=== PATIENT | female | born 1990 | race Caucasian/White ===

== ENCOUNTER 2021-02-05 18:42 | Emergency (ER) | payer BC, SELFPAY ==
--- OUTSIDE RECORDS SUMMARY | 2021-02-05 18:44 | XMS REPORT | Continuity of Care Document ---
:1990 Author Organization [facility] t Address [address] [place] [address] Dr. Pérez [address] [place] [id number] Care Team Providers Name Role Phone Unavailable Unavailable Unavailable Problems This patient has no known problems. Allergies, Adverse Reactions, Alerts This patient has no known allergies or adverse reactions. Medications This patient has no known medications. Procedures This patient has no known procedures. Results This patient has no known results.
[2021-02-05] MEDS ORDERED: ACETAMINOPHEN 500 MG TAB ONE (19:54)
--- NOTE | 2021-02-05 22:11 | RAD REPORT ---
EXAM DESCRIPTION: RAD - Chest Pa And Lat (2 Views) - 02/05/2021 9:19 pm CLINICAL HISTORY: COUGH COMPARISON: No comparisons FINDINGS: No evidence of edema or pneumonia. The heart size is within normal limits.No acute osseous abnormality. No significant pleural effusions or pneumothorax. IMPRESSION: No acute cardiopulmonary disease.
--- NOTE | 2021-02-05 23:04 | ER ---
Nurse's Notes [facility] Name: Michelle Vaughan Age: 30 yrs Sex: Female : 1990 Arrival Date: 02/05/2021 Time: 18:44 Bed Waiting Private MD: Diagnosis: SARS-associated coronavirus as the cause of diseases classified elsewhere;Other specified diseases of upper respiratory tract Presentation: 02/05 18:48 Chief complaint: Patient states: SOB, chest pain, body aches x 3days. Coronavirus kg screen: Client denies travel out of the [place] in the last 14 days. At this time, unable to obtain information related to travel outside the [place] At this time, the client does not indicate any symptoms associated with coronavirus-19. Ebola Screen: Patient negative for fever greater than or equal to 101.5 degrees Fahrenheit, and additional compatible Ebola Virus Disease symptoms Patient denies exposure to infectious person. Patient denies travel to an Ebola-affected area in the 21 days before illness onset. No symptoms or risks identified at this time. Initial Sepsis Screen: Does the patient meet any 2 criteria? No. Patient's initial sepsis screen is negative. Does the patient have a suspected source of infection? No. Patient's initial sepsis screen is negative. Risk Assessment: Do you want to hurt yourself or someone else? Patient reports no desire to harm self or others. Onset of symptoms was February 03, 2021. 18:48 Method Of Arrival: Wheelchair kg 18:48 Acuity: PHILIP 3 kg Triage Assessment: 18:55 General: Appears in no apparent distress. Behavior is cooperative, appropriate for age, kg crying, quiet. Respiratory: Reports shortness of breath at rest cough that is Onset: The symptoms/episode began/occurred the patient has mild shortness of breath. 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 Last tetanus immunization:. - Social history:: Smoking status: Patient denies any tobacco usage or history of. Screenin:54 Abuse screen: Denies threats or abuse. Denies injuries from another. Nutritional kg screening: No deficits noted. Tuberculosis screening: No symptoms or risk factors identified. Fall Risk None identified. Assessment: 18:54 Pain: Complains of pain in chest. Cardiovascular: Reports chest pain, shortness of kg breath. Respiratory: Airway. Respiratory: Respiratory effort is even, unlabored, Respiratory pattern is tachypnea Breath sounds are clear bilaterally. 23:21 Cardiovascular: Rhythm is regular. kg Vital Signs: 18:48 BP 142 / 97; Pulse 97; Resp 20; Temp 100.1(O); Pulse Ox 100% on R/A; Weight 113.4 kg kg (R); Height 5 ft. 6 in. (167.64 cm) (R); Pain 7/10; 23:20 BP 119 / 84; Pulse 96; Resp 20; Temp 98.5(O); Pulse Ox 100% on R/A; kg 18:48 Body Mass Index 40.35 (113.40 kg, 167.64 cm) kg ED Course: 18:44 Patient arrived in ED. ds1 18:50 Triage completed. kg 20:32 Jose Rae PA is PHCP. cp 20:32 Faraz Han MD is Attending Physician. cp 21:19 XRAY Chest Pa And Lat (2 Views) In Process Unspecified. EDOK 23:20 Rachel Moreira, RN is Primary Nurse. kg 23:20 Arm band placed on right wrist. kg 23:21 Patient has correct armband on for positive identification. kg 23:21 No provider procedures requiring assistance completed. Patient did not have IV access kg during this emergency room visit. Administered Medications: 19:32 Drug: Tylenol 1000 mg Route: PO; kg 23:21 Follow up: Response: No adverse reaction; Temperature is decreased kg Outcome: 23:04 Discharge ordered by . cp 23:21 Discharged to home ambulatory. kg 23:21 Condition: improved 23:21 Discharge instructions given to patient, Instructed on discharge instructions, follow up and referral plans. Demonstrated understanding of instructions, follow-up care, medications, Prescriptions given X 4. 23:22 Patient left the ED. kg Signatures: Dispatcher [employer] EDOK JulianAfshan booker ds1 Jose Rae PA PA cp Rachel Moreira, RN RN kg
--- NOTE | 2021-02-05 23:04 | EDPHYS ---
Physician Documentation [facility] Name: Michelle Vaughan Age: 30 yrs Sex: Female : 1990 Arrival Date: 02/05/2021 Time: 18:44 Bed Waiting Private MD: ED Physician Faraz Han HPI: 02/05 23:00 This 30 yrs old Female presents to ER via Wheelchair with complaints of cp Breathing Difficulty. 23:00 The patient has shortness of breath at rest. Onset: The symptoms/episode began/occurred cp 2 day(s) ago. Duration: The symptoms are continuous, and are unchanged since they started. Associated signs and symptoms: Pertinent positives: chest pain, non-productive cough, body aches, Pertinent negatives: diaphoresis, fever. Severity of symptoms: in the emergency department the symptoms are unchanged despite home interventions. 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 Last tetanus immunization:. - Social history:: Smoking status: Patient denies any tobacco usage or history of. ROS: 23:01 Eyes: Negative for injury, pain, redness, and discharge. cp 23:01 Constitutional: Positive for body aches, chills, Negative for fever, poor PO intake. 23:01 ENT: Positive for sore throat, Negative for drainage from ear(s), ear pain, difficulty swallowing, difficulty handling secretions. 23:01 Neck: Negative for pain with movement, pain at rest, stiffness. 23:01 Cardiovascular: Positive for chest pain, with cough, Negative for edema, palpitations. 23:01 Respiratory: Positive for cough, with no reported sputum, shortness of breath, at rest. Negative for wheezing. 23:01 Abdomen/GI: Positive for abdominal pain, Negative for vomiting, diarrhea, constipation. 23:01 Back: Negative for radiated pain. 23:01 Neuro: Negative for altered mental status, dizziness, syncope, weakness. 23:01 All other systems are negative. Exam: 23:02 Head/Face: Normocephalic, atraumatic. cp 23:02 Constitutional: The patient appears in no acute distress, alert, awake, non-diaphoretic, non-toxic, well developed, well nourished, obese. 23:02 Eyes: Periorbital structures: appear normal, Conjunctiva: normal, no exudate, no cp injection, Sclera: no appreciated abnormality, Lids and lashes: appear normal, bilaterally. 23:02 ENT: External ear(s): are unremarkable, Nose: is normal, Mouth: Lips: moist, Oral cp mucosa: pink and intact, moist, Posterior pharynx: Airway: no evidence of obstruction, patent, Tonsils: no enlargement, no exudate, erythema, that is mild. 23:02 Neck: ROM/movement: is normal, is supple, without pain, no range of motions limitations, no meningismus. 23:02 Chest/axilla: Inspection: normal, Palpation: is normal, no crepitus, no tenderness. 23:02 Cardiovascular: Rate: normal, Rhythm: regular, Edema: is not appreciated, JVD: is not appreciated. 23:02 Respiratory: the patient does not display signs of respiratory distress, Respirations: normal, no use of accessory muscles, no retractions, labored breathing, is not present, Breath sounds: are clear throughout, no decreased breath sounds, no stridor, no wheezing. 23:02 Abdomen/GI: Exam negative for discomfort, distension, guarding, Inspection: abdomen appears normal. 23:02 Back: pain, that is very mild, ROM is normal. 23:02 Skin: no rash present. 23:02 Neuro: Orientation: to person, place \\T\\ time. Mentation: is normal, Motor: moves all fours, Gait: is steady, at a normal pace, without difficulty. Vital Signs: 18:48 BP 142 / 97; Pulse 97; Resp 20; Temp 100.1(O); Pulse Ox 100% on R/A; Weight 113.4 kg kg (R); Height 5 ft. 6 in. (167.64 cm) (R); Pain 7/10; 23:20 BP 119 / 84; Pulse 96; Resp 20; Temp 98.5(O); Pulse Ox 100% on R/A; kg 18:48 Body Mass Index 40.35 (113.40 kg, 167.64 cm) kg MDM: 23:04 Patient medically screened. cp 23:04 Data reviewed: vital signs, nurses notes, radiologic studies, plain films. cp 23:04 Test interpretation: by ED physician or midlevel provider: plain radiologic studies. cp Counseling: I had a detailed discussion with the patient and/or guardian regarding: the historical points, exam findings, and any diagnostic results supporting the discharge/admit diagnosis, radiology results, to return to the emergency department if symptoms worsen or persist or if there are any questions or concerns that arise at home. ED course: VSS. Patient appears non-toxic and no signs of respiratory distress. Will discharge to home for continued monitoring. 02/05 18:54 Order name: COVID-19 : Document "Date of Symptom Onset" if Symptomatic. kg 02/05 18:54 Order name: Flu kg 02/05 20:33 Order name: XRAY Chest Pa And Lat (2 Views) cp 02/05 20:33 Order name: SARS-COV-2 RT PCR EDMS Administered Medications: 19:32 Drug: Tylenol 1000 mg Route: PO; kg 23:21 Follow up: Response: No adverse reaction; Temperature is decreased kg Disposition: 23:24 Co-signature as Attending Physician, Faraz Han MD. pkl Disposition Summary: 02/05/21 23:04 Discharge Ordered Location: Home cp Problem: new cp Symptoms: are unchanged cp Condition: Stable cp Diagnosis - SARS-associated coronavirus as the cause of diseases classified elsewhere cp - Other specified diseases of upper respiratory tract cp Followup: cp - With: Private Physician - When: 2 - 3 days - Reason: Worsening of condition Discharge Instructions: - Discharge Summary Sheet cp - COVID-19 cp - Things to Know about the COVID-19 Pandemic - [facility] cp - 10 Things You Can Do to Manage Your COVID-19 Symptoms at Home - [facility] cp - COVID-19: Quarantine vs. Isolation - [facility] cp - Prevent the Spread of COVID-19 if You Are Sick - [facility] cp Forms: - Medication Reconciliation Form cp - Thank You Letter cp - Antibiotic Education cp - Work release form cp - Prescription Opioid Use cp Prescriptions: - albuterol sulfate 90 mcg/actuation Inhalation HFA aerosol inhaler - inhale 2 puff by INHALATION route every 4-6 hours; 1 Inhaler; Refills: 0, cp Product Selection Permitted - Tessalon Perles 100 mg Oral Capsule - take 2 capsule by ORAL route every 8 hours As needed; 30 capsule; Refills: 0, cp Product Selection Permitted - Zithromax Z-Vahe 250 mg Oral Tablet - take 1 tablet by ORAL route as directed for 5 days Day 1 - take two (2) tablets cp one time. Day 2, 3, 4 , 5 take one (1) tablet once daily.; 6 tablet; Refills: 0, Product Selection Permitted - Prednisone 20 mg Oral Tablet - take 2 tablets by ORAL route once daily for 5 days then take 1 tablet daily for cp 5 days; 15 tablet; Refills: 0, Product Selection Permitted Signatures: Dispatcher [employer] EDMS Faraz Han MD MD pkl oJse Rae, JORDAN PA cp Rachel Moreira RN RN kg Corrections: (The following items were deleted from the chart) 19:41 18:54 CORONAVIRUS ordered. EDNH EDNH
[2021-02-05 23:31] VITALS: O2SAT 100
[2021-02-05 23:36] VITALS: BP 119/84; TEMP 98.5
== END 2021-02-05 23:22 | disposition home or self-care (01) ==
LOC: ER 18:42
DX: U07.1 COVID-19 (principal); J98.8 Other specified respiratory disorders
CPT/HCPCS: 71046; 87804; 99283; U0003

== ENCOUNTER 2021-02-12 17:35 | Inpatient (IN) | payer SELFPAY ==
--- OUTSIDE RECORDS SUMMARY | 2021-02-12 17:38 | XMS REPORT | Continuity of Care Document ---
:1990 Author Organization [facility] t Address [address] [place] [address] Dr. Pérez [address] [place] [id number] Care Team Providers Name Role Phone Unavailable Unavailable Unavailable Problems This patient has no known problems. Allergies, Adverse Reactions, Alerts This patient has no known allergies or adverse reactions. Medications This patient has no known medications. Procedures This patient has no known procedures. Results This patient has no known results.
[2021-02-12 19:08] LABS: Absolute Lymphocytes (CBC) 0.7 K/uL (0.7-4.9); Basophils % 0.3 % (0-1.3); Hematocrit 43.3 % (36.0-45.0); Lymphocytes % 17.8 % (15.3-44.8); MPV 8.5 fL (7.6-11.3); Protime INR 1.03; RBC Red Blood Cell Count 5.16 M/uL (3.86-4.86)
[2021-02-12] MEDS ORDERED: METHYLPREDNISOLONE 125 MG INJ ONE (19:19)
[2021-02-12] MEDS ORDERED: FAMOTIDINE 20 MG/2 ML VIAL IV ONE (19:19)
[2021-02-12] MEDS ORDERED: ONDANSETRON 4 MG/2 ML VIAL ONE (19:19)
[2021-02-12] MEDS ORDERED: METOCLOPRAMIDE 10 MG/2mL INJ ONE (19:19)
[2021-02-12] MEDS ORDERED: NA CHLORIDE 0.9% 1,000 ML ONE (19:19)
[2021-02-12 19:24] LABS: ALT/SGPT 23 U/L (12-78); AST/SGOT 29 U/L (15-37); Albumin 3.5 g/dL (3.4-5.0); Alkaline Phosphatase 68 U/L (45-117); BUN Blood Urea Nitrogen 6 mg/dL (7-18); Bicarbonate 30 mmol/L (21-32); Bilirubin Direct 0.2 mg/dL (0-0.2); Bilirubin Total 0.4 mg/dL (0.2-1.0); Ferritin 610.4 ng/mL (8-388); Glucose Level 105 mg/dL (74-106); Magnesium 2.1 mg/dL (1.8-2.4); Potassium 3.7 mmol/L (3.5-5.1); Protein, Total 7.4 g/dL (6.4-8.2); Sodium Level 135 mmol/L (136-145); Troponin (Emerg Dept Use Only) < 0.02 ng/mL (0.0-0.045)
[2021-02-12 19:34] LABS: NT PRO-BNP < 5 pg/mL (<125)
--- NOTE | 2021-02-12 20:09 | ER ---
Nurse's Notes [facility] Name: Michelle Vaughan Age: 30 yrs Sex: Female : 1990 Arrival Date: 02/12/2021 Time: 17:36 Bed 5 Private MD: Diagnosis: Other viral pneumonia;Hypoxemia;SARS-associated coronavirus as the cause of diseases classified elsewhere Presentation: 02/12 18:17 Chief complaint: Patient states: Vomiting, shortness of breath, GRIMALDO, vomiting/ diarrhea ss since being diagnosed with COVID. Coronavirus screen: Client presents with at least one sign or symptom that may indicate coronavirus-19. Standard/surgical mask placed on the client. Provider contacted for isolation considerations. Ebola Screen: Patient denies exposure to infectious person. Patient denies travel to an Ebola-affected area in the 21 days before illness onset. Initial Sepsis Screen: Does the patient meet any 2 criteria? Yes Does the patient have a suspected source of infection? No. Patient's initial sepsis screen is negative. Risk Assessment: Do you want to hurt yourself or someone else? Patient reports no desire to harm self or others. Onset of symptoms was January 2021. 18:17 Acuity: PHILIP 2 ss 18:17 Method Of Arrival: Wheelchair ss Historical: - Allergies: 18:18 No Known Allergies; ss - Home Meds: 18:18 Zofran Oral [Active]; ss - PMHx: 18:18 None; ss - PSHx: 18:18 section; Ligation of fallopian tube; Tonsillectomy; ss - Immunization history:: Client reports having NOT received the Covid vaccine. - Social history:: Smoking status: Patient denies any tobacco usage or history of. Screenin:07 Abuse screen: Denies threats or abuse. Denies injuries from another. Nutritional iw screening: No deficits noted. Tuberculosis screening: No symptoms or risk factors identified. Fall Risk IV access (20 points). Assessment: 19:07 Reassessment: Patient appears in no apparent distress at this time. Patient and/or iw family updated on plan of care and expected duration. Pain level reassessed. Patient is alert, oriented x 3, equal unlabored respirations, skin warm/dry/pink. 19:07 General: Appears in no apparent distress. Behavior is calm, cooperative. Pain: iw Complains of pain in head. Neuro: Level of Consciousness is awake, alert, obeys commands, Oriented to person, place, time, situation, Moves all extremities. Full function. Cardiovascular: Patient's skin is warm and dry. Respiratory: Reports pain with respiration Respiratory effort is even, unlabored, Respiratory pattern is regular. GI: Abdomen is non-distended, Reports nausea, vomiting. Derm: Skin is intact, is healthy with good turgor. Musculoskeletal: Range of motion: intact in all extremities. Vital Signs: 18:17 BP 106 / 33; Pulse 111; Resp 36; Temp 97.8(TE); Pulse Ox 93% on R/A; Weight 113.4 kg; ss Height 5 ft. 7 in. (170.18 cm); Pain 10/10; 19:06 BP 123 / 78; Pulse 98; Resp 22 S; Pulse Ox 96% on 2 lpm NC; iw 18:17 Body Mass Index 39.16 (113.40 kg, 170.18 cm) ss ED Course: 17:36 Patient arrived in ED. ds1 18:18 Triage completed. ss 18:18 Arm band placed on right wrist. ss 18:24 Jose Rae PA is PHCP. cp 18:24 Talha oGnzáles MD is Attending Physician. cp 18:40 Inserted saline lock: 20 gauge in left antecubital area, using aseptic technique. Blood iw collected. 19:14 XRAY Chest (1 view) In Process Unspecified. EDMS 20:06 Hali Doyle RN is Primary Nurse. iw 20:07 Brian Ceja PA is Hospitalizing Provider. cp 20:44 CT Chest For PE Angio In Process Unspecified. EDMS 08 19:30 Primary Nurse role handed off by Hali Doyle, JUAN mw2 Administered Medications: 02/12 19:08 Drug: NS 0.9% 1000 ml Route: IV; Rate: 1000 ml/hr; Site: left antecubital; iw 19:09 Drug: SOLU-Medrol (methylPrednisoLONE) 125 mg Route: IVP; Site: left antecubital; iw 19:09 Drug: Zofran (Ondansetron) 4 mg Route: IVP; Site: left antecubital; iw 19:09 Drug: Pepcid (famotidine) 20 mg Route: IVP; Site: left antecubital; iw 19:09 Drug: Reglan (metoCLOPramide) 10 mg Route: IVP; Site: left antecubital; iw 20:11 Drug: Tessalon Perle (benzonatate) 200 mg Route: PO; ea 20:11 Drug: Tylenol 1000 mg Route: PO; ea Outcome: 20:08 Decision to Hospitalize by Provider. fior 02/14 21:59 Admitted to Tele room 413, with oxygen, with chart, Report called to JUAN Fine lp1 Condition: stable Instructed on the need for admit. 22:39 Patient left the ED. lp1 Signatures: Dispatcher [employer] EDMI Afshan Julian ds1 Hali Doyle RN RN iw Shilpa Kc RN RN ss Pena, Laura, RN RN lp1 Jose Rae PA PA cp Antunez, Elena, RN RN ea [place], MyKena mw2
--- NOTE | 2021-02-12 20:09 | EDPHYS ---
Physician Documentation [facility] Name: Michelle Vaughan Age: 30 yrs Sex: Female : 1990 Arrival Date: 02/12/2021 Time: 17:36 Bed 5 Private MD: ED Physician Talha Gonzáles HPI: 02/12 18:45 This 30 yrs old Female presents to ER via Wheelchair with complaints of Covid cp + SOB, Vomiting. Historical: - Allergies: 18:18 No Known Allergies; ss - Home Meds: 18:18 Zofran Oral [Active]; ss - PMHx: 18:18 None; ss - PSHx: 18:18 section; Ligation of fallopian tube; Tonsillectomy; ss - Immunization history:: Client reports having NOT received the Covid vaccine. - Social history:: Smoking status: Patient denies any tobacco usage or history of. ROS: 18:50 Constitutional: Positive for body aches, poor PO intake, Negative for chills, fever. cp 18:50 Eyes: Negative for injury, pain, redness, and discharge. cp 18:50 ENT: Negative for ear pain, sore throat, difficulty swallowing, difficulty handling secretions. 18:50 Cardiovascular: Positive for chest pain, with cough, Negative for edema, palpitations. 18:50 Respiratory: Positive for cough, "sounds productive", shortness of breath, Negative for wheezing. 18:50 Abdomen/GI: Positive for nausea, vomiting, and diarrhea, anorexia, Negative for hematemesis, black/tarry stool, rectal bleeding. 18:50 Back: Negative for injury or acute deformity. 18:50 : Negative for urinary symptoms. 18:50 Neuro: Negative for altered mental status, headache, syncope. 18:50 All other systems are negative. Exam: 18:50 Head/Face: Normocephalic, atraumatic. cp 18:50 Constitutional: The patient appears alert, awake, non-diaphoretic, non-toxic, well developed, well nourished, obese, in obvious distress, mildly distressed. 18:50 Eyes: Periorbital structures: appear normal, Pupils: equal, round, and reactive to light and accomodation, Extraocular movements: intact throughout, Conjunctiva: normal, no exudate, no injection, Sclera: no appreciated abnormality, Lids and lashes: appear normal, bilaterally. 18:50 ENT: External ear(s): are unremarkable, Nose: is normal, Mouth: Lips: moist, Oral mucosa: moist, Posterior pharynx: Airway: no evidence of obstruction, patent. 18:50 Neck: ROM/movement: is normal, is supple, no meningismus, no nuchal rigidity. 18:50 Chest/axilla: Inspection: normal. 18:50 Cardiovascular: Rate: tachycardic, Rhythm: regular, Edema: is not appreciated, JVD: is not appreciated. 18:50 Respiratory: mild respiratory distress is noted, Respirations: labored breathing, that is mild, shallow respirations, that is moderate, Breath sounds: bronchial sounds, that are moderate, are heard diffusely, decreased breath sounds, that are mild, diffuse, stridor, is not appreciated, wheezing: is not appreciated. 18:50 Abdomen/GI: Inspection: abdomen appears normal, Bowel sounds: active, all quadrants, Palpation: soft, in all quadrants, mild abdominal tenderness, in all quadrants. 18:50 Back: CVA tenderness, is absent. 18:50 Skin: cellulitis, is not appreciated, no rash present. 18:50 Neuro: Orientation: to person, place \\T\\ time. Mentation: is normal, Cerebellar function: is grossly normal, Motor: moves all fours, strength is normal, Sensation: no obvious gross deficits. Vital Signs: 18:17 BP 106 / 33; Pulse 111; Resp 36; Temp 97.8(TE); Pulse Ox 93% on R/A; Weight 113.4 kg; ss Height 5 ft. 7 in. (170.18 cm); Pain 10/10; 19:06 BP 123 / 78; Pulse 98; Resp 22 S; Pulse Ox 96% on 2 lpm NC; iw 18:17 Body Mass Index 39.16 (113.40 kg, 170.18 cm) ss MDM: 18:30 Patient medically screened. cp 19:00 Differential diagnosis: Myocardial Infarction pneumonia, Pneumothorax pulmonary edema, cp Pulmonary Embolism Sepsis respiratory failure. 20:05 Data reviewed: vital signs, nurses notes, lab test result(s), EKG, radiologic studies, cp plain films. 20:05 Antibiotic administration: Not indicated, the patient has a suspected viral illness. cp Test interpretation: by ED physician or midlevel provider: plain radiologic studies. Counseling: I had a detailed discussion with the patient and/or guardian regarding: the historical points, exam findings, and any diagnostic results supporting the discharge/admit diagnosis, lab results, radiology results, the need for further work-up and treatment in the hospital. Response to treatment: the patient's symptoms have mildly improved after treatment. 02/12 18:40 Order name: Basic Metabolic Panel; Complete Time: 19:35 cp 02/12 19:36 Interpretation: Normal except: NA 135; BUN 6; GFR 65. cp 02/12 18:40 Order name: CBC with Diff; Complete Time: 19:35 cp 02/12 19:36 Interpretation: Normal except: RBC 5.16; WBC 3.90; MATT% 73.9. cp 02/12 18:40 Order name: LFT's; Complete Time: 19:35 cp 02/12 19:36 Interpretation: Normal except: A/G 0.9; GLOB 3.9. cp 02/12 18:40 Order name: Magnesium; Complete Time: 19:35 cp 02/12 18:40 Order name: NT PRO-BNP; Complete Time: 19:35 cp 02/12 18:40 Order name: PT-INR; Complete Time: 19:35 cp 02/12 18:40 Order name: Troponin (emerg Dept Use Only); Complete Time: 19:35 cp 02/12 18:40 Order name: CRP; Complete Time: 19:35 cp 02/12 19:36 Interpretation: Abnormal: C-REACTIVE PROT 64.70. cp 02/12 18:40 Order name: Ferritin; Complete Time: 19:35 cp 02/12 18:40 Order name: D-Dimer; Complete Time: 19:35 cp 02/13 05:08 Order name: Comprehensive Metabolic Panel EDMS 02/13 05:08 Order name: Phosphorus EDMS 02/13 05:08 Order name: C-Reactive Protein EDMS 02/13 05:08 Order name: Magnesium EDMS 02/12 18:40 Order name: XRAY Chest (1 view); Complete Time: 21:24 cp 02/12 21:25 Interpretation: Report reviewed. cp 02/12 18:40 Order name: EKG; Complete Time: 18:44 cp 02/12 18:40 Order name: Cardiac monitoring; Complete Time: 09:13 cp 02/12 19:59 Order name: CT Chest For PE Angio; Complete Time: 21:24 cp 02/12 21:15 Order name: CONS Physician Consult EDMS 02/13 05:08 Order name: Ferritin EDMS 02/13 05:11 Order name: CBC with Automated Diff EDMS 02/13 06:10 Order name: Procalcitonin EDMS 02/14 03:50 Order name: Comprehensive Metabolic Panel EDMS 02/12 18:40 Order name: IV Saline Lock; Complete Time: 19:09 cp 02/12 18:40 Order name: Labs collected and sent; Complete Time: 19:09 cp 02/12 18:40 Order name: O2 Per Protocol; Complete Time: 19:09 cp 02/12 18:40 Order name: O2 Sat Monitoring; Complete Time: 19:09 cp 02/12 19:37 Order name: PO challenge; Complete Time: 20:07 cp Administered Medications: 19:08 Drug: NS 0.9% 1000 ml Route: IV; Rate: 1000 ml/hr; Site: left antecubital; iw 19:09 Drug: SOLU-Medrol (methylPrednisoLONE) 125 mg Route: IVP; Site: left antecubital; iw 19:09 Drug: Zofran (Ondansetron) 4 mg Route: IVP; Site: left antecubital; iw 19:09 Drug: Pepcid (famotidine) 20 mg Route: IVP; Site: left antecubital; iw 19:09 Drug: Reglan (metoCLOPramide) 10 mg Route: IVP; Site: left antecubital; iw 20:11 Drug: Tessalon Perle (benzonatate) 200 mg Route: PO; ea 20:11 Drug: Tylenol 1000 mg Route: PO; ea Disposition Summary: 02/12/21 20:08 Hospitalization Ordered Hospitalization Status: Inpatient Admission cp Provider: Brian Ceja cp Condition: Fair cp Problem: new cp Symptoms: have improved cp Bed/Room Type: Standard cp Location: Telemetry/MedSurg (Inpatient)(02/14/21 21:17) mw Room Assignment: 413(02/14/21 21:17) mw Diagnosis - Other viral pneumonia cp - Hypoxemia cp - SARS-associated coronavirus as the cause of diseases classified elsewhere cp Forms: - Medication Reconciliation Form cp - SBAR form cp Signatures: Dispatcher [employer] EDMS Jo, Anjana, RN RN mw Vivek, Hali, RN RN iw Smirch, Shilpa, RN RN ss Page, Jose, PA PA Kimberley Santo RN RN ea Corrections: (The following items were deleted from the chart) 21:04 20:08 Telemetry/MedSurg (Inpatient) cp mw 21:04 20:08 cp mw 02/14 18:31 08 18:45 This 30 yrs old Female presents to ER via Wheelchair with cp complaints of Covid + SOB, Vomiting. cp 02/14 21:17 02/12 21:04 [facility] ER HOLD mw mw 02/14 21:17 02/12 21:04 ERHOLD- mw mw
[2021-02-12] MEDS ORDERED: ACETAMINOPHEN 500 MG TAB ONE (20:32)
[2021-02-12] MEDS ORDERED: BENZONATATE 100 MG CAP PO ONE ×2 (20:32→20:33)
--- NOTE | 2021-02-12 20:39 | RAD REPORT ---
EXAM DESCRIPTION: RAD - Chest Single View - 02/12/2021 7:14 pm CLINICAL HISTORY: COUGH, COVID positive COMPARISON: February 05 TECHNIQUE: AP portable chest image was obtained 02/12/2021 7:14 pm . FINDINGS: Lung volumes are low. Bilateral interstitial and alveolar opacities are present more prono unced on the left. Pattern is consistent with bilateral COVID-19 pneumonia. No failure or volume over load. Heart and vasculature are normal. No measurable pleural effusion and no pneumothorax. No acute bony abnormality seen. No acute aortic findings suspected. IMPRESSION: Mild to moderate bilateral COVID-19 pneumonia.
--- NOTE | 2021-02-12 21:12 | RAD REPORT ---
EXAM DESCRIPTION: CT - Chest For Pe Angio - 02/12/2021 8:45 pm CLINICAL HISTORY: SOB COMPARISON: Chest Single View dated 02/12/2021 TECHNIQUE: Dynamically enhanced 3 mm thick images of the chest were obtained during administration o f approximately 150mL Isovue 370 IV contrast. Coronal and oblique MIP reconstruction images were gene rated and reviewed. Exam utilizes a protocol to evaluate the pulmonary arterial tree. All CT scans are performed using dose optimization technique as appropriate and may include automated exposure control or mA/KV adjustment according to patient size. FINDINGS: No pulmonary emboli are identified. The aorta as imaged shows no acute or suspicious finding. No pericardial thickening or effusion. Bilateral multi lobe peripheral ground-glass opacification and areas of consolidation seen. This is p redominately a peripheral distribution pattern classically described with COVID-19 pneumonia. Minimal atelectasis in each posterior gutter. No mass or cavitation. No endobronchial lesions. No pleural ef fusion or pleural thickening. No mediastinal or hilar suspicious masses. No chest wall masses or abnormal axillary lymphadenopathy. Bilateral breast implants are in place.6 IMPRESSION: No pulmonary emboli identified. Mild to moderate severity bilateral COVID-19 pneumonia pattern.
--- NOTE | 2021-02-12 22:13 | P.HP ---
Certification for Inpatient Patient admitted to: Inpatient With expected LOS: >2 Midnights Patient will require the following post-hospital care: None Practitioner: I am a practitioner with admitting privileges, knowledge of patient current condition, hospital course, and medical plan of care. Services: Services provided to patient in accordance with Admission requirements found in Title 42 Section 412.3 of the Code of Federal Regulations Patient History Date of Service: 02/12/21 Reason for admission: covid pneumonia History of Present Illness: Ms. Vaughan is a 30 yo F who presents with fever and SOB. She tested positive for COVID on 02/05 and symptoms began on 02/03. She came in today because she coudln't catch her breath. She reports night sweats, chills, cough, pleuritic pain, nausea, vomiting, diarrhea. Ddimer 792. Ferritin 610. CRP 64.7. CTPE and CXR show moderate pneumonia, no evidence of pulmonary embolism. Allergies No Known Drug Allergies Allergy (Unverified 11/25/14 09:39) Unknown - Past Medical/Surgical History Has patient received pneumonia vaccine in the past: No Diabetic: No Past Medical History: Patient denies medical history -: C section -: tonsillectomy -: ear tubes - Family History Father -: Diabetes - Social History Smoking Status: Never smoker Alcohol use: No CD- Drugs: No Caffeine use: Yes Place of Residence: Home Review of Systems General: Fever, Chills, Sweats, Malaise Respiratory: Cough, Shortness of Breath, SOB with Excertion, Pleuritic Pain Gastrointestinal: Nausea, Vomiting, Diarrhea Physical Examination - Physical Exam General: Alert, In no apparent distress HEENT: Atraumatic, PERRLA, Mucous membr. moist/pink, EOMI, Sclerae nonicteric Neck: Supple, 2+ carotid pulse no bruit, No LAD, Without JVD or thyroid abno rmality Respiratory: Diminished, Rhonchi/gurgles Cardiovascular: Regular rate/rhythm, Normal S1 S2 Gastrointestinal: Normal bowel sounds, No tenderness Musculoskeletal: No tenderness Integumentary: No rashes Neurological: Normal speech, Normal strength at 5/5 x4 extr, Normal tone, Normal affect Lymphatics: No axilla or inguinal lymphadenopathy - Studies Laboratory Data (last 24 hrs) 02/12/21 18:50: PT 11.9, INR 1.03 02/12/21 18:50: WBC 3.90 L, Hgb 14.5, Hct 43.3, Plt Count 169 02/12/21 18:50: Sodium 135 L, Potassium 3.7, BUN 6 L, Creatinine 1.00, Glucose 105, Magnesium 2.1, Total Bilirubin 0.4, AST 29, ALT 23, Alkaline Phosphatase 68 Assessment and Plan - Problems (Diagnosis) (1) Pneumonia due to COVID-19 virus Current Visit: Yes Status: Acute - Plan pulm consulted, RT consulted daily room air sats, sats for home O2 continue IV steroids, covid supplements, and ivermectin pain management and antitussives as needed daily CRP, ferritin, procal DVT ppx Discharge Plan: Home Plan to discharge in: 48 Hours - Advance Directives Does patient have a Living Will: No Does patient have a Durable POA for Healthcare: No - Code Status/Comfort Care Code Status Assessed: Yes (full code ) Critical Care: No Time Spent Managing Pts Care (In Minutes): 70
[2021-02-13] MEDS ORDERED: MELATONIN 5 MG TABLET PO PRN (02:47)
[2021-02-13] MEDS: GUAIFENESIN/DM 5 ML UCUP PO PRN ×2 (03:00→13:27)
[2021-02-13] MEDS: MORPHINE 2 MG/ML SYR IV PRN ×3 (03:13→17:15)
[2021-02-13] MEDS ORDERED: MELATONIN 5 MG TABLET PO ONE ×2 (03:44→21:45)
[2021-02-13] MEDS ORDERED: GUAIFENESIN/DM 5 ML UCUP ONE ×3 (03:45→21:46)
[2021-02-13] MEDS ORDERED: MORPHINE 2 MG/ML SYR ONE ×3 (04:32→17:34)
[2021-02-13 04:46] LABS: Absolute Lymphocytes (CBC) 0.5 K/uL (0.7-4.9); Basophils % 0.1 % (0-1.3); Hematocrit 39.5 % (36.0-45.0); Lymphocytes % 25.4 % (15.3-44.8); MPV 8.4 fL (7.6-11.3)
[2021-02-13 05:07] LABS: Albumin 3.1 g/dL (3.4-5.0); Bilirubin Total 0.3 mg/dL (0.2-1.0); C-Reactive Protein 65.6 mg/L (<3.00); Ferritin 560.9 ng/mL (8-388); Magnesium 2.3 mg/dL (1.8-2.4); Phosphorus 3.4 mg/dL (2.5-4.9); Protein, Total 6.8 g/dL (6.4-8.2)
[2021-02-13 07:51] VITALS: BMI 39.1
--- NOTE | 2021-02-13 08:55 | P.CNS ---
Date of Consult: 02/13/21 Reason for Consult: COVID penumonia Chief Complaint: covid pneumonia History of Present Illness: Age 30 AW REsp failure fromCOVID Allergies No Known Drug Allergies Allergy (Unverified 11/25/14 09:39) Unknown - Past Medical/Surgical History Diabetic: No -: C section -: tonsillectomy -: ear tubes - Family History Father Medical History: Diabetes - Social History Alcohol use: No CD- Drugs: No Caffeine use: Yes Place of Residence: Home Review of Systems General: Weakness Respiratory: Shortness of Breath Physical Examination Temp Pulse Resp BP Pulse Ox 98.7 F 73 18 115/79 93 02/13/21 04:00 02/13/21 04:00 02/13/21 04:00 02/13/21 04:00 02/13/21 04:00 General: Alert, Oriented x3, Cooperative Laboratory Data (last 24 hrs) 02/12/21 18:50: PT 11.9, INR 1.03 02/12/21 18:50: WBC 3.90 L, Hgb 14.5, Hct 43.3, Plt Count 169 02/12/21 18:50: Sodium 135 L, Potassium 3.7, BUN 6 L, Creatinine 1.00, Glucose 105, Magnesium 2.1, Total Bilirubin 0.4, AST 29, ALT 23, Alkaline Phosphatase 68 - Problems (1) Pneumonia due to COVID-19 virus Current Visit: Yes Status: Acute Plan: Age 30 Aw resp failure from COVID/ Ct ext pneumonia/onNC O2/ labs and Ct rev
[2021-02-13] MEDS: ZINC SULFATE 220 MG CAP PO SCH (09:00)
[2021-02-13] MEDS: THIAMINE HCL 100 MG TABLET PO SCH (09:00)
[2021-02-13] MEDS: ASCORBIC ACID 500 MG TABLET PO SCH ×4 (09:00→21:00)
[2021-02-13] MEDS: IVERMECTIN 3 MG TABLET PO SCH (09:00)
[2021-02-13] MEDS: ASPIRIN EC 81 MG TAB PO SCH (09:00)
[2021-02-13] MEDS: FAMOTIDINE 20 MG TAB PO SCH ×2 (09:00→21:00)
[2021-02-13] MEDS: METHYLPREDNISOLONE 125 MG INJ IV SCH ×2 (09:00→21:00)
[2021-02-13] MEDS: VITAMIN D 1000 UNIT TAB PO SCH (09:00)
[2021-02-13] MEDS ORDERED: ASCORBIC ACID 500 MG TABLET ONE ×4 (09:32→21:45)
[2021-02-13] MEDS ORDERED: THIAMINE HCL 100 MG TABLET ONE (09:32)
[2021-02-13] MEDS ORDERED: ASPIRIN EC 81 MG TAB PO ONE (09:32)
[2021-02-13] MEDS ORDERED: ZINC SULFATE 220 MG CAP ONE (09:32)
[2021-02-13] MEDS ORDERED: VITAMIN D 1000 UNIT TAB ONE (09:33)
[2021-02-13] MEDS ORDERED: FAMOTIDINE 20 MG TAB ONE ×2 (09:33→21:46)
[2021-02-13] MEDS ORDERED: METHYLPREDNISOLONE 40 MG INJ ONE ×2 (09:33→21:46)
--- NOTE | 2021-02-13 15:26 | P.PN ---
Subjective Date of Service: 02/13/21 Chief Complaint: covid pneumonia Patient maintained on 3-4 L of oxygen by nasal cannula. She reports shortness of breath was slightest exertion and coughing spells with movement. Physical Examination - Vital Signs Temperature: 98.2 F Blood Pressure: 138/72 Pulse: 87 Respirations: 28 Pulse Ox (%): 90 - Physical Exam General: In no apparent distress, Obese HEENT: Other (Oxygen by nasal canula) Neck: JVD not distended Respiratory: Other (Nonlabored breathing) Cardiovascular: Regular rate/rhythm, Normal S1 S2 Gastrointestinal: Soft and benign, Non-distended Musculoskeletal: No swelling Integumentary: No rashes Neurological: Normal strength at 5/5 x4 extr - Studies Laboratory Data (last 24 hrs) 02/12/21 18:50: PT 11.9, INR 1.03 02/12/21 18:50: WBC 3.90 L, Hgb 14.5, Hct 43.3, Plt Count 169 02/12/21 18:50: Sodium 135 L, Potassium 3.7, BUN 6 L, Creatinine 1.00, Glucose 105, Magnesium 2.1, Total Bilirubin 0.4, AST 29, ALT 23, Alkaline Phosphatase 68 Assessment And Plan - Current Problems (Diagnosis) (1) Acute respiratory failure with hypoxia Current Visit: Yes Status: Acute (2) Pneumonia due to COVID-19 virus Current Visit: Yes Status: Acute (3) Leukopenia Current Visit: Yes Status: Acute - Plan IV steroid Vitamin supplementation Zinc supplementation Pulmonary input appreciated Titrate oxygen
[2021-02-13] MEDS ORDERED: RIVAROXABAN 10 MG TABLET PO SCH (17:00)
[2021-02-13] MEDS: ONDANSETRON 4 MG/2 ML VIAL IV PRN (17:16)
[2021-02-13] MEDS ORDERED: RIVAROXABAN 20 MG TABLET PO ONE (17:34)
[2021-02-13] MEDS ORDERED: ONDANSETRON 4 MG/2 ML VIAL ONE (17:34)
[2021-02-13] MEDS ORDERED: LORAZEPAM 0.5 MG TABLET PO ONE (23:20)
[2021-02-13] MEDS ORDERED: LORAZEPAM 0.5 MG TABLET ONE (23:49)
[2021-02-14] MEDS: ONDANSETRON 4 MG/2 ML VIAL IV PRN (03:00)
[2021-02-14] MEDS: GUAIFENESIN/DM 5 ML UCUP PO PRN ×3 (03:00→22:30)
[2021-02-14] MEDS: MORPHINE 2 MG/ML SYR IV PRN ×3 (03:02→22:30)
[2021-02-14] MEDS ORDERED: MORPHINE 2 MG/ML SYR ONE ×3 (03:42→22:48)
[2021-02-14] MEDS ORDERED: ONDANSETRON 4 MG/2 ML VIAL ONE (03:42)
[2021-02-14] MEDS ORDERED: GUAIFENESIN/DM 5 ML UCUP ONE ×3 (03:44→22:47)
[2021-02-14 03:49] LABS: ALT/SGPT 21 U/L (12-78); AST/SGOT 21 U/L (15-37); Albumin 2.9 g/dL (3.4-5.0); Alkaline Phosphatase 55 U/L (45-117); BUN Blood Urea Nitrogen 11 mg/dL (7-18); Bicarbonate 31 mmol/L (21-32); Bilirubin Total 0.2 mg/dL (0.2-1.0); Glucose Level 169 mg/dL (74-106); Potassium 4.4 mmol/L (3.5-5.1); Protein, Total 6.4 g/dL (6.4-8.2); Sodium Level 139 mmol/L (136-145)
[2021-02-14] MEDS: VITAMIN D 1000 UNIT TAB PO SCH (09:00)
[2021-02-14] MEDS: ASPIRIN EC 81 MG TAB PO SCH (09:00)
[2021-02-14] MEDS: ZINC SULFATE 220 MG CAP PO SCH (09:00)
[2021-02-14] MEDS: FAMOTIDINE 20 MG TAB PO SCH ×2 (09:00→20:48)
[2021-02-14] MEDS: METHYLPREDNISOLONE 125 MG INJ IV SCH ×2 (09:00→20:48)
[2021-02-14] MEDS: THIAMINE HCL 100 MG TABLET PO SCH (09:00)
[2021-02-14] MEDS: ASCORBIC ACID 500 MG TABLET PO SCH ×4 (09:00→20:48)
[2021-02-14] MEDS ORDERED: THIAMINE HCL 100 MG TABLET ONE (09:46)
[2021-02-14] MEDS ORDERED: ASPIRIN EC 81 MG TAB PO ONE (09:46)
[2021-02-14] MEDS ORDERED: ASCORBIC ACID 500 MG TABLET ONE ×4 (09:46→20:08)
[2021-02-14] MEDS ORDERED: VITAMIN D 1000 UNIT TAB ONE (09:47)
[2021-02-14] MEDS ORDERED: FAMOTIDINE 20 MG TAB ONE ×2 (09:47→20:09)
[2021-02-14] MEDS ORDERED: ZINC SULFATE 220 MG CAP ONE (09:47)
[2021-02-14] MEDS ORDERED: METHYLPREDNISOLONE 40 MG INJ ONE ×2 (09:47→20:08)
[2021-02-14] MEDS ORDERED: RIVAROXABAN 20 MG TABLET PO ONE (13:11)
[2021-02-14] MEDS: RIVAROXABAN 20 MG TABLET PO SCH (17:00)
--- NOTE | 2021-02-14 18:56 | P.PN ---
Subjective Date of Service: 02/14/21 Chief Complaint: covid pneumonia Patient is getting worse. She is now requiring up to 12 L of oxygen by nasal canula. She report dyspnea with the slightest movement. Physical Examination - Vital Signs Temperature: 97.5 F Blood Pressure: 114/60 Pulse: 73 Respirations: 19 Pulse Ox (%): 94 - Physical Exam General: Alert, In no apparent distress Neck: JVD not distended Respiratory: Other (Nonlabored breathing) Cardiovascular: Regular rate/rhythm, Normal S1 S2 Gastrointestinal: Soft and benign, Non-distended Musculoskeletal: No swelling Integumentary: No rashes, No erythema Neurological: Normal strength at 5/5 x4 extr Assessment And Plan - Current Problems (Diagnosis) (1) Acute respiratory failure with hypoxia Current Visit: Yes Status: Acute (2) Pneumonia due to COVID-19 virus Current Visit: Yes Status: Acute (3) Leukopenia Current Visit: Yes Status: Acute - Plan continue IV steroid Vitamin supplementation Zinc supplementation Pulmonary is following Titrate oxygen Monitor inflammatory markers. Immune modulators once patient meets the criteria.
[2021-02-14] MEDS ORDERED: REMDESIVIR (EUA) 200 MG in NA CHLORIDE 0.9% 250 ML IV ONE (19:00)
--- NOTE | 2021-02-14 21:51 | P.PN ---
Subjective Date of Service: 02/14/21 Chief Complaint: covid pneumonia Subjective: Improving (O2 requirements decreasing) Review of Systems General: Weakness Respiratory: Shortness of Breath Physical Examination - Vital Signs Temperature: 97.5 F Blood Pressure: 114/60 Pulse: 73 Respirations: 19 Pulse Ox (%): 94 - Physical Exam General: Alert, Oriented x3, Cooperative Assessment & Plan - Problems (Diagnosis) (1) Pneumonia due to COVID-19 virus Current Visit: Yes Status: Acute Plan: Improving plan to wean an dDC
[2021-02-15 00:08] LABS: Urine Appearance CLEAR (Clear); Urine Bilirubin NEGATIVE (Negative); Urine Blood 3+ (Negative); Urine Color RED (Yellow); Urine Glucose NEGATIVE (Negative); Urine Microscopic Reflex ORDER UMIC; Urine Protein 1+ (Negative); Urine Specific Gravity <=1.005 (1.005-1.030); Urine Urobilinogen 0.2 mg/dL (0.2-1.0); Urine pH 6.5 (5.0-7.0)
[2021-02-15 01:25] LABS: Urine Bacteria <20 /HPF (<20); Urine RBC >50 /HPF (NONE SEEN)
[2021-02-15 03:48] LABS: Absolute Lymphocytes (CBC) 0.7 K/uL (0.7-4.9); Basophils % 0.1 % (0-1.3); Hematocrit 37.1 % (36.0-45.0); Lymphocytes % 13.3 % (15.3-44.8); MPV 8.6 fL (7.6-11.3); RBC Red Blood Cell Count 4.41 M/uL (3.86-4.86)
[2021-02-15 04:02] LABS: Albumin 2.8 g/dL (3.4-5.0); Bilirubin Total 0.2 mg/dL (0.2-1.0); C-Reactive Protein 11.1 mg/L (<3.00); Ferritin 382.2 ng/mL (8-388); Magnesium 2.3 mg/dL (1.8-2.4); Potassium 4.4 mmol/L (3.5-5.1); Protein, Total 6.2 g/dL (6.4-8.2)
--- NOTE | 2021-02-15 08:55 | RAD REPORT ---
EXAM DESCRIPTION: RAD - Chest Single View - 02/15/2021 4:38 am CLINICAL HISTORY: worsening hypoxia, covid Chest pain. COMPARISON: Chest Single View dated 02/12/2021; Chest Pa And Lat (2 Views) dated 02/05/2021 FINDINGS: Portable technique limits examination quality. Since 02/12/2021, mild improvement is seen in bilateral pulmonary opacities. The heart is mildly enla rged in size. No displaced fractures. IMPRESSION: Mild improvement is seen in lung aeration since comparative study.
[2021-02-15] MEDS: METHYLPREDNISOLONE 125 MG INJ IV SCH ×2 (09:00→19:39)
[2021-02-15] MEDS: ZINC SULFATE 220 MG CAP PO SCH (09:44)
[2021-02-15] MEDS: FAMOTIDINE 20 MG TAB PO SCH ×2 (09:44→19:38)
[2021-02-15] MEDS: ASCORBIC ACID 500 MG TABLET PO SCH ×4 (09:45→19:39)
[2021-02-15] MEDS: VITAMIN D 1000 UNIT TAB PO SCH (09:45)
[2021-02-15] MEDS: ASPIRIN EC 81 MG TAB PO SCH (09:45)
[2021-02-15] MEDS: REMDESIVIR (EUA) 100 MG in NA CHLORIDE 0.9% 250 ML IV SCH (09:45)
[2021-02-15] MEDS: THIAMINE HCL 100 MG TABLET PO SCH (09:45)
[2021-02-15] MEDS: IVERMECTIN 3 MG TABLET PO SCH (09:50)
[2021-02-15] MEDS: GUAIFENESIN/DM 5 ML UCUP PO PRN ×2 (10:08→19:39)
[2021-02-15] MEDS: ACETAMINOPHEN 500 MG TAB PO PRN ×2 (10:08→16:53)
--- NOTE | 2021-02-15 13:41 | P.PN ---
Subjective Date of Service: 02/15/21 Chief Complaint: covid pneumonia Subjective: Improving (doing better, breathing more comfortably, inflammatory markers improved, on 10L NC) Review of Systems 10-point ROS is otherwise unremarkable Physical Examination - Vital Signs Temperature: 97.5 F Blood Pressure: 100/56 Pulse: 56 Respirations: 18 Pulse Ox (%): 97 Assessment & Plan Physician Review Additional Text: Physical Exam General: Alert, In no apparent distress Respiratory: slight tachypnea, nonlabored on 10L NC Cardiovascular: Regular rate/rhythm, Normal S1 S2 Gastrointestinal: Soft and benign, Non-distended Musculoskeletal: No joint swelling Integumentary: No rashes, No erythema Problem List acute hypoxemic respiratory failure secondary to COVID-19 pneumonia Leukopenia -continue covid treatment protocol - steroids, vitamin supplementation, O2 supplementation -pulm is following -continue xarelto, remdesevir -slowly seems to be improving -diet as tolerated -wean O2 as tolerated -monitor glc Dispo: anticipate dc home in ~2-3 days Time Spent Managing Pts Care (In Minutes): 35
[2021-02-15] MEDS: RIVAROXABAN 20 MG TABLET PO SCH (16:48)
[2021-02-15] MEDS: MORPHINE 2 MG/ML SYR IV PRN (18:04)
[2021-02-16] MEDS: GUAIFENESIN/DM 5 ML UCUP PO PRN ×3 (02:32→19:33)
[2021-02-16] MEDS: MORPHINE 2 MG/ML SYR IV PRN ×3 (02:40→19:33)
[2021-02-16 03:51] LABS: MPV 8.7 fL (7.6-11.3); RBC Red Blood Cell Count 4.28 M/uL (3.86-4.86)
[2021-02-16 04:12] LABS: C-Reactive Protein 4.75 mg/L (<3.00); Ferritin 435.5 ng/mL (8-388); Potassium 4.5 mmol/L (3.5-5.1)
--- NOTE | 2021-02-16 06:23 | P.PN ---
Subjective Date of Service: 02/16/21 Chief Complaint: covid pneumonia Subjective: Improving (Breathing more comfortably, continue just chest discomfort with deep breathing/cough, substernal) Review of Systems 10-point ROS is otherwise unremarkable Physical Examination - Vital Signs Temperature: 97.5 F Blood Pressure: 105/59 Pulse: 52 Respirations: 20 Pulse Ox (%): 92 Assessment & Plan Physician Review Additional Text: Physical Exam General: Alert, In no apparent distress Respiratory: slight tachypnea, nonlabored on 10L NC Cardiovascular: Regular rate/rhythm, Normal S1 S2 Gastrointestinal: Soft and benign, Non-distended Musculoskeletal: TTP along sternum Integumentary: No rashes, No erythema Problem List acute hypoxemic respiratory failure secondary to COVID-19 pneumonia Leukopenia, resolved possible acute cystitis -continue covid treatment protocol - steroids, vitamin supplementation, O2 supplementation -pulm is following -continue xarelto, remdesevir -slowly improving -diet as tolerated -wean O2 as tolerated -reports some leakage of urine at times, more so with coughing, UA questionable, culture with +GNR, levaquin started 02/16 -CT without any pericardial effusion, check trop today, doubt cardiac etiology of pain, as it is reproducible with palpation Dispo: anticipate dc home in ~1-2 days Time Spent Managing Pts Care (In Minutes): 35
[2021-02-16 08:06] LABS: ALT/SGPT 99 U/L (12-78); AST/SGOT 58 U/L (15-37); Albumin 2.8 g/dL (3.4-5.0); Alkaline Phosphatase 46 U/L (45-117); Bilirubin Direct < 0.1 mg/dL (0-0.2); Bilirubin Total 0.2 mg/dL (0.2-1.0); Protein, Total 5.9 g/dL (6.4-8.2)
[2021-02-16] MEDS: VITAMIN D 1000 UNIT TAB PO SCH (08:56)
[2021-02-16] MEDS: ASPIRIN EC 81 MG TAB PO SCH (08:56)
[2021-02-16] MEDS: ZINC SULFATE 220 MG CAP PO SCH (08:56)
[2021-02-16] MEDS: ASCORBIC ACID 500 MG TABLET PO SCH ×4 (08:56→19:33)
[2021-02-16] MEDS: METHYLPREDNISOLONE 125 MG INJ IV SCH ×2 (08:57→19:33)
[2021-02-16] MEDS: THIAMINE HCL 100 MG TABLET PO SCH (08:57)
[2021-02-16] MEDS: FAMOTIDINE 20 MG TAB PO SCH ×2 (08:57→19:33)
[2021-02-16] MEDS: REMDESIVIR (EUA) 100 MG in NA CHLORIDE 0.9% 250 ML IV SCH (08:58)
[2021-02-16] MEDS: ONDANSETRON 4 MG/2 ML VIAL IV PRN (10:16)
[2021-02-16] MEDS: Levofloxacin500mg IV 500 MG/100 ML BAG IV SCH (12:37)
[2021-02-16] MEDS: RIVAROXABAN 20 MG TABLET PO SCH (16:36)
[2021-02-17 04:18] LABS: ALT/SGPT 114 U/L (12-78); AST/SGOT 35 U/L (15-37); Albumin 2.8 g/dL (3.4-5.0); Alkaline Phosphatase 44 U/L (45-117); BUN Blood Urea Nitrogen 13 mg/dL (7-18); Bicarbonate 28 mmol/L (21-32); Bilirubin Direct < 0.1 mg/dL (0-0.2); Bilirubin Total 0.2 mg/dL (0.2-1.0); Ferritin 396.5 ng/mL (8-388); Glucose Level 183 mg/dL (74-106); Potassium 4.4 mmol/L (3.5-5.1); Protein, Total 5.9 g/dL (6.4-8.2); Sodium Level 139 mmol/L (136-145)
[2021-02-17 04:38] LABS: C-Reactive Protein < 2.90 mg/L (<3.00)
[2021-02-17] MEDS: VITAMIN D 1000 UNIT TAB PO SCH (09:00)
[2021-02-17] MEDS: REMDESIVIR (EUA) 100 MG in NA CHLORIDE 0.9% 250 ML IV SCH (09:00)
[2021-02-17] MEDS: METHYLPREDNISOLONE 125 MG INJ IV SCH (09:56)
[2021-02-17] MEDS: THIAMINE HCL 100 MG TABLET PO SCH (09:56)
[2021-02-17] MEDS: ZINC SULFATE 220 MG CAP PO SCH (09:56)
[2021-02-17] MEDS: FAMOTIDINE 20 MG TAB PO SCH (09:56)
[2021-02-17] MEDS: ASCORBIC ACID 500 MG TABLET PO SCH ×2 (09:56→13:09)
[2021-02-17] MEDS: GUAIFENESIN/DM 5 ML UCUP PO PRN (09:57)
[2021-02-17] MEDS: ASPIRIN EC 81 MG TAB PO SCH (10:45)
[2021-02-17] MEDS: MORPHINE 2 MG/ML SYR IV PRN (10:45)
[2021-02-17 13:04] VITALS: BP 130/63; TEMP 97.7
[2021-02-17] MEDS: Levofloxacin500mg IV 500 MG/100 ML BAG IV SCH (13:08)
[2021-02-17 13:33] VITALS: O2SAT 93
--- NOTE | 2021-02-17 14:17 | P.PN ---
Subjective Date of Service: 02/17/21 Chief Complaint: covid pneumonia Subjective: Improving (O2 requirement declining) Review of Systems General: Weakness Respiratory: Shortness of Breath Physical Examination - Vital Signs Temperature: 97.7 F Blood Pressure: 130/63 Pulse: 100 Respirations: 16 Pulse Ox (%): 90 - Physical Exam General: Alert, Oriented x3, Cooperative Assessment & Plan - Problems (Diagnosis) (1) Pneumonia due to COVID-19 virus Current Visit: Yes Status: Acute Plan: Improving/ plan for DC home
--- NOTE | 2021-02-17 14:29 | P.DS ---
Admission Date: 02/12/21 Discharge Date: 02/17/21 Disposition: ROUTINE DISCHARGE Discharge Condition: GOOD Reason for Admission: covid pneumonia Consultations: Pulmonology Dr. Lucas Procedures: CXR (02/12): Lung volumes are low. Bilateral interstitial and alveolar opacities are present more pronounced on the left. Pattern is consistent with bilateral COVID-19 pneumonia. No failure or volume overload. Heart and vasculature are normal. No measurable pleural effusion and no pneumothorax. No acute bony abnormality seen. No acute aortic findings suspected. IMPRESSION: Mild to moderate bilateral COVID-19 pneumonia. CTA chest (02/12): No pulmonary emboli are identified. The aorta as imaged shows no acute or suspicious finding. No pericardial thickening or effusion. Bilateral multi lobe peripheral ground-glass opacification and areas of consolidation seen. This is predominately a peripheral distribution pattern classically described with COVID-19 pneumonia. Minimal atelectasis in each posterior gutter. No mass or cavitation. No endobronchial lesions. No pleural effusion or pleural thickening. No mediastinal or hilar suspicious masses. No chest wall masses or abnormal axillary lymphadenopathy. Bilateral breast implants are in place.6 IMPRESSION: No pulmonary emboli identified. CXR (02/15): Since 02/12/2021, mild improvement is seen in bilateral pulmonary opacities. The heart is mildly enlarged in size. No displaced fractures. IMPRESSION: Mild improvement is seen in lung aeration since comparative study. Problem List acute hypoxemic respiratory failure secondary to COVID-19 pneumonia Leukopenia, resolved acute simple cystitis Brief History of Present Illness: 30 yo F who presents with fever and SOB. She tested positive for COVID on 02/05 and symptoms began on 02/03. She came in today because she coudln't catch her breath. She reports night sweats, chills, cough, pleuritic pain, nausea, vomiting, diarrhea. Ddimer 792. Ferritin 610. CRP 64.7. CTPE and CXR show moderate pneumonia, no evidence of pulmonary embolism. Hospital Course: Patient was found to have COVID-19 pneumonia. She had gradual improvement with steroids, vitamin supplementation, oxygen supplementation. She was also treated with Xarelto and remdesivir. She had reported some urinary frequency, and was found to have UTI as well. Urine culture grew E. coli, sensitivities reviewed, patient discharged to complete a 7-day course of Levaquin. Patient is discharged home with 2 weeks of prednisone, vitamin supplementation, aspirin 162 mg daily, and oxygen supplementation. During her hospitalization, patient did report some sternal discomfort with deep inspiration/expiration and coughing. There is no evidence of pericardial effusion on CT, troponins were repeated and negative. Her pain was reproducible with palpation on exam and felt not due to be cardiac in nature. Patient advised to follow-up with Dr. Lucas in 1 week Vital Signs/Physical Exam: Physical Exam General: Alert, In no apparent distress Respiratory: Nonlabored on 4 L nasal cannula Cardiovascular: Regular rate/rhythm, Normal S1 S2 Gastrointestinal: Soft and benign, Non-distended Musculoskeletal: TTP along sternum Integumentary: No rashes, No erythema Temp Pulse Resp BP Pulse Ox 97.7 F 100 H 16 130/63 90 L 02/17/21 14:17 02/17/21 14:17 02/17/21 14:17 02/17/21 14:17 02/17/21 14:17 Laboratory Data at Discharge: WBC 5.30 K/uL (4.3-10.9) 02/16/21 03:36 Hgb 12.4 g/dL (12.0-15.0) 02/16/21 03:36 Hct 36.0 % (36.0-45.0) 02/16/21 03:36 Plt Count 265 K/uL (152-406) 02/16/21 03:36 PT 11.9 SECONDS (9.5-12.5) 02/12/21 18:50 INR 1.03 02/12/21 18:50 Sodium 139 mmol/L (136-145) 02/17/21 03:13 Potassium 4.4 mmol/L (3.5-5.1) 02/17/21 03:13 BUN 13 mg/dL (7-18) 02/17/21 03:13 Creatinine 0.71 mg/dL (0.55-1.3) 02/17/21 03:13 Glucose 183 mg/dL (74-106) H 02/17/21 03:13 Phosphorus 3.4 mg/dL (2.5-4.9) 02/13/21 04:17 Magnesium 2.3 mg/dL (1.8-2.4) 02/15/21 03:07 Total Bilirubin 0.2 mg/dL (0.2-1.0) 02/17/21 03:13 AST 35 U/L (15-37) 02/17/21 03:13 ALT 114 U/L (12-78) H 02/17/21 03:13 Alkaline Phosphatase 44 U/L (45-117) L 02/17/21 03:13 Troponin I < 0.02 ng/mL (0.0-0.045) 02/16/21 11:40 Home Medications: Phentermine HCl 37.5 mg PO DAILY 02/13/21 levoFLOXacin [Levaquin] 750 mg PO DAILY 6 Days #6 tab 02/17/21 predniSONE [Prednisone] 20 mg PO SEECOM 14 Days #21 tablet 02/17/21 New Medications: levoFLOXacin [Levaquin] 750 mg PO DAILY 6 Days #6 tab predniSONE [Prednisone] 20 mg PO SEECOM 14 Days #21 tablet Physician Discharge Instructions: You were found to have COVID-19 pneumonia. Discharged home with oxygen supplementation, steroids, and aspirin 162mg daily. You do not need Xarelto (stronger blood thinner) Please call Dr. Lucas's office to schedule f/u appointment in the next day or 2. You were also found to have a urinary tract infection (UTI). You are discharged with 6 more days of antibiotics. Diet: Regular Activity: Ad sofía Followup: Stanley Lucas MD [ACTIVE - CAN ADMIT] - (Please call to schedule appointment) Layo Callahan MD [Primary Care Provider] - (Please Call to schedule follow up appointments) Time spent managing pt's care (in minutes): 40
== END 2021-02-17 14:40 | disposition home or self-care (01) | DRG 177 ==
LOC: ER 17:35 → ERHOLD 21:28 → 4TH 02-14 21:41
PROVIDERS: ADMIT Internal Medicine; ATTEND Internal Medicine
DX: U07.1 COVID-19 (principal); J12.82 Pneumonia due to coronavirus disease 2019; J96.01 Acute respiratory failure with hypoxia; N30.00 Acute cystitis without hematuria; D72.819 Decreased white blood cell count, unspecified; B96.20 Unspecified Escherichia coli [E. coli] as the cause of diseases classified elsewhere
CPT/HCPCS: 36415; 71045; 71275; 80048; 80053; 80076; 81003; 81015; 82728; 83735; 83880; 84100; 84145; 84484; 85025; 85027; 85379; 85610; 86140; 87077; 87086; 87088; 87186; 94760; 96374; 96375; 99285; J2270; J2405; J2765; J2920; J2930; J7030; J7050; Q9967